=== PATIENT | male | born 1960 | race Two or more races ===

== ENCOUNTER 2023-06-30 06:45 | Day surgery (SDC) | payer OTHER ==
[~2023-06-30] VITALS: Ht 172.7 cm; Wt 72.6 kg
[~2023-06-30 06:45] MED LIST: COZAAR100 MG PO; TIROSINT112 MCG PO
[2023-06-30] MEDS ORDERED: OXYC1TAB9 PO (12:45)
== END 2023-06-30 14:20 | disposition home or self-care (01) ==
LOC: CIR.AMB 06:45
PROVIDERS: ATTEND Surgery
DX: K60.3 Anal fistula (principal); K62.89 Other specified diseases of anus and rectum; Z20.822 Contact with and (suspected) exposure to COVID-19

== ENCOUNTER 2023-11-02 06:12 | Day surgery (SDC) | payer OTHER ==
[~2023-11-02 06:12] MED LIST changes: +OXYC1TAB9 PO
[2023-11-02] MEDS ORDERED: OXYC1TAB9 PO (09:14)
== END 2023-11-02 13:05 | disposition home or self-care (01) ==
LOC: CIR.AMB 06:12
PROVIDERS: ATTEND Surgery
DX: K60.3 Anal fistula (principal); K62.89 Other specified diseases of anus and rectum; E78.5 Hyperlipidemia, unspecified; I10 Essential (primary) hypertension; E03.9 Hypothyroidism, unspecified; Z20.822 Contact with and (suspected) exposure to COVID-19